=== PATIENT | female | born 1955 | race Caucasian/White ===

== ENCOUNTER → 2017-04-06 | Outpatient (CLI) | payer OTHER ==
[2017-04-06 15:01] LABS: ALBUMIN 3.9 g/dL (3.4-5.0); ALKALINE PHOSPHATASE 56 U/L (46-116); CHOLESTEROL 208 mg/dL (<200); DIRECT BILIRUBIN 0.1 mg/dL (<0.1-0.3); HDL CHOLESTEROL 58 mg/dL (>40); LDL CHOLESTEROL 123 mg/dL (<100); SGOT 17 U/L (15-37); SGPT 24 U/L (30-65); TC:HDL 3.6 Ratio (Not establshd); TOTAL BILIRUBIN 0.3 mg/dL (<0.1-1.0); TOTAL PROTEIN 7.5 g/dL (6.4-8.2); TRIGLYCERIDE 135 mg/dL (<150); VLDL 27 mg/dL (<40)
[2017-04-06 15:03] LABS: SERUM ASSESSMENT Clear
== END ==
LOC: M.LAB 13:53
PROVIDERS: Internal Medicine
DX: E78.00 Pure hypercholesterolemia, unspecified (principal); I10 Essential (primary) hypertension; I65.29 Occlusion and stenosis of unspecified carotid artery

== ENCOUNTER → 2017-04-11 | Outpatient (CLI) | payer BC, OTHER | LOC: M.ULTRA 10:10 | DX: I65.22 Occlusion and stenosis of left carotid artery (principal) ==

== ENCOUNTER → 2017-10-17 | Outpatient (CLI) | payer OTHER | LOC: M.ULTRA 09:00 | DX: I65.23 Occlusion and stenosis of bilateral carotid arteries (principal) ==

== ENCOUNTER 2020-07-11 12:33 | Emergency (ER) | payer MEDICARE, OTHER ==
[~2020-07-11] VITALS: Ht 175.3 cm; Wt 65.8 kg
[2020-07-11] MEDS ORDERED: ZETIA10 MG PO (12:51)
[2020-07-11] MEDS ORDERED: TRIAMTERENE/HCT1 CA1 PO (12:51)
[2020-07-11] MEDS ORDERED: PROPRANOLOL 1010 MG PO (12:51)
[2020-07-11] MEDS ORDERED: APAP W/CODEINE1 TA2 PO ×2 (14:24→14:31)
[2020-07-11 14:51] VITALS: BP 141/65
== END 2020-07-11 14:52 | disposition home or self-care (01) ==
LOC: M.ERS 12:33
DX: S82.492A Other fracture of shaft of left fibula, initial encounter for closed fracture (principal); S92.355A Nondisplaced fracture of fifth metatarsal bone, left foot, initial encounter for closed fracture; I10 Essential (primary) hypertension; Z98.51 Tubal ligation status; Z98.890 Other specified postprocedural states; Z91.041 Radiographic dye allergy status; Z88.5 Allergy status to narcotic agent; X50.1XXA Overexertion from prolonged static or awkward postures, initial encounter; Y93.89 Activity, other specified; Y92.89 Other specified places as the place of occurrence of the external cause; Y99.8 Other external cause status